=== PATIENT | female | born 1985 | race Caucasian/White ===

== ENCOUNTER 2018-07-01 06:47 | Inpatient (IN) | payer BC ==
[2018-07-01 07:44] VITALS: BMI 27.4
[2018-07-01] MEDS ORDERED: Acetaminophen 500 MG TAB PO PRN (08:00)
[2018-07-01] MEDS ORDERED: Misoprostol 200 MCG TAB PR PRN (08:00)
[2018-07-01] MEDS ORDERED: HYDROcodone/Acetaminophen 5/325 mg Tablet PO PRN ×2 (08:00→20:50)
[2018-07-01] MEDS ORDERED: Methylergonovine 0.2 MG/ML VIAL IM PRN (08:00)
[2018-07-01] MEDS ORDERED: Carboprost 250 MCG/ML AMP IM PRN (08:00)
[2018-07-01] MEDS ORDERED: Promethazine HCl 25 MG/ML VIAL IM PRN ×3 (08:00→20:50)
[2018-07-01] MEDS ORDERED: Ibuprofen 800 MG TAB PO PRN (08:00)
[2018-07-01] MEDS ORDERED: Butorphanol Tartrate 1 MG/ML VIAL SLOW IVP PRN (08:00)
[2018-07-01] MEDS ORDERED: NS / Oxytocin 40 units/1000ml 1,000 ML IV PRN (08:00)
[2018-07-01] MEDS ORDERED: Ondansetron PF 4 MG/2 ML Vial IVP PRN ×3 (08:00→20:50)
[2018-07-01] MEDS ORDERED: NS w/ Oxytocin 10 units 500 ML IV SCH (08:00)
[2018-07-01] MEDS ORDERED: Diphenoxylate HCl/Atropine Tablet PO PRN (08:00)
[2018-07-01] MEDS ORDERED: Lidocaine 1% (PF) 30 ML VIAL SC PRN (08:00)
--- NOTE | 2018-07-01 08:00 | PDOC.LDHP ---
Labor and Delivery H&P Chief complaint: scheduled induction HPI: 32yo at 39w4d by LMP for elective IOL. No complaints Current gestational age (weeks): 39 Due date: 07/05/18 Dating criteria: last menstrual period Grav: 2 Para: 1 Current complications: none Abnormal US findings: No Past Medical History: denies Current medications: pre-marcelina vitamins, other (folic acid) Previous surgical history: none Allergies/Adverse Reactions: Allergies Allergy/AdvReac Type Severity Reaction Status Date / Time No Known Allergies Allergy Verified 07/01/18 07:57 Social history: none - Physical Exam Vital signs reviewed and normal: yes General: NAD Heart: RRR Lungs: CTAB Abdomen: gravid Extremeties: no edema FHT: category 1 [place] contractions every: 10min - Vaginal Exam cm dilated: 3 Effacement: 50% Station: -2 (arom clear scant) - OB Labs Blood type: B RH: positive Antibody Screen: negative HIV: negative RPR: negative HEPSAg: negative 1 hour GCT: negative GBS: negative Urine drug screen: negative Rubella: immune - Assessment L&D Assessment: elective induction at term - Plan Plan: admit to L&D, labor augmentation if indicated, informed consent obtained, anesthesia consult for pain management
[2018-07-01 08:10] LABS: Mean Corpuscular HGB CONC 34.8 g/dL (32.0-36.0); Mean Corpuscular Hemoglobin 31.3 pg (27.0-31.0); Mean Corpuscular Volume 90.1 fL (78.0-98.0); Mean Platelet Volume 7.7 fL (7.4-10.4); Platelet Count 173 thou/uL (130-400); RBC Distribution Width 12.4 % (11.5-14.5); Red Blood Cell (RBC) Count 3.83 mill/uL (4.20-5.40)
[2018-07-01] MEDS: Lactated Ringer's 1,000 ML IV SCH ×2 (08:44→09:00)
[2018-07-01 08:54] LABS: HBSAg Index 0.26 S/CO (0-0.99); Hep B Surf Ag Non-Reactive S/CO (NonReactive)
[2018-07-01 08:55] LABS: Syphilis Antibody Nonreactive (Nonreactive); Syphilis Antibody Index 0.02 S/CO (<1.00 Non-Reactive)
[2018-07-01] MEDS ORDERED: Fentanyl 4 mcg/Bup 0.1% Cadd 0 ML ONE (09:27)
[2018-07-01] MEDS ORDERED: Fentanyl 4 mcg/Bup 0.1% Cadd 100 ML ONE (09:29)
[2018-07-01] MEDS ORDERED: Lidocaine 1.5%/Epinephrine 1:200,000 5 ML AMPUL IJ ONE (09:38)
[2018-07-01] MEDS ORDERED: diphenhydrAMINE 50 MG/ML VIAL IVP PRN (10:27)
[2018-07-01] MEDS ORDERED: ePHEDrine/0.9% NaCl/PF SYRINGE 50 mg/10 ml SLOW IVP PRN (10:27)
[2018-07-01] MEDS ORDERED: Naloxone HCl 0.4 mg/ml Vial IVP PRN ×2 (10:27)
[2018-07-01] MEDS ORDERED: Acetaminophen 325 MG TAB PO PRN (10:27)
[2018-07-01] MEDS ORDERED: Eucerin (Mineral Oil/Petrolatum,White) 30 gm Jar TOP PRN (10:27)
[2018-07-01] MEDS ORDERED: Lactated Ringer's 500 ML IV PRN (10:27)
[2018-07-01] MEDS ORDERED: Communication Order-Pharmacy FS SCH (10:30)
[2018-07-01] MEDS ORDERED: Fentanyl 4 mcg/Bupivacaine 0.1% Cassette 100 ML EPIDURAL SCH (10:30)
[2018-07-01] MEDS ORDERED: Bupivacaine/Epinephrine 0.25% 30 ML VIAL ONE (11:11)
--- NOTE | 2018-07-01 13:15 | PDOC.LDPN ---
Labor & Delivery Progress Note - Subjective Subjective: comfortable - Objective Vital signs reviewed and normal: yes General: NAD Uterine fundus: non tender Dilation: 5 Effacement: 90% Station: -1 FHT: category 1 [place] contractions every: 2-32min Plan: continue plan of care, labor augmentation
[2018-07-01] MEDS ORDERED: Methylergonovine 0.2 MG/ML VIAL ONE (17:27)
--- NOTE | 2018-07-01 17:45 | PDOC.OPDEL ---
OB Operative/Delivery Note Delivery Dr/Surgeon: Castro Assist: n/a Pre-Delivery Diagnosis: elective induction Procedure/Post Delivery Dx: spontaneous vaginal delivery Weeks gestation: 39 Anesthesia: epidural - Findings A Sex: male - 1 min: 8 - 5 min: 9 - Additional Findings/Plan Placenta delivered: spontaneous Repaired Obstetrical Laceration: 2nd degree (repaired with 2-0 vicryl in usual fashion, excellent hemostasis) Estimated blood loss: 400 Post delivery plan: routine recovery
[2018-07-01] MEDS ORDERED: Preparation H Ointment 28 GM TUBE PR PRN (20:50)
[2018-07-01] MEDS ORDERED: Benzocaine/Menthol 20-0.5% 60 ML CAN TOP PRN (20:50)
[2018-07-01] MEDS ORDERED: NS / Oxytocin 40 units/1000ml 1,000 ML IV SCH (20:50)
[2018-07-01] MEDS ORDERED: Lanolin Ointment 7 GM TUBE TOP PRN (20:50)
[2018-07-01] MEDS ORDERED: diphenhydrAMINE 25 MG CAP PO PRN (20:50)
[2018-07-01] MEDS ORDERED: Bisacodyl 10 MG SUPP PR PRN (20:50)
[2018-07-01] MEDS ORDERED: Adacel (T-DAP) 0.5 ML SYRINGE IM ONE (20:50)
[2018-07-01] MEDS ORDERED: Milk Of Magnesia 30 ML UDCUP PO PRN (20:50)
[2018-07-01] MEDS: HYDROcodone/Acetaminophen 5/325 mg Tablet PO PRN (21:28)
[2018-07-01] MEDS: Docusate Calcium (SURFAK) 240 MG CAP PO SCH (21:28)
[2018-07-01] MEDS: Ibuprofen 800 MG TAB PO SCH (21:37)
[2018-07-02] MEDS: Ibuprofen 800 MG TAB PO SCH ×2 (03:35→11:38)
[2018-07-02] MEDS: HYDROcodone/Acetaminophen 5/325 mg Tablet PO PRN ×4 (03:38→18:26)
--- NOTE | 2018-07-02 07:47 | PDOC.PP ---
Post Progress Note Post Day #: 1 PO intake tolerated: yes Flatus: yes Ambulation: yes Vital Signs (12 hours) Temp Pulse Resp BP 07/02/18 03:42 98.1 F 68 18 113/70 07/02/18 00:05 98.0 F 75 18 107/55 L 07/01/18 22:30 98.9 F 73 18 99/52 L 07/01/18 21:30 98.9 F 81 18 108/62 07/01/18 20:30 98.7 F 87 18 119/59 L Weight Weight 170 lb - Physical Examination General: NAD Respiratory: non-labored breathing Abdominal: no distention, appropriately TTP Fundus firm & at: umb Extremities: negative homans (B) Skin: no rash Neurological: no gross focal deficits Psychiatric: normal affect Result Diagrams: 07/01/18 07:46 Additional Labs: Post Labs Blood Type B POSITIVE 07/01/18 08:36 Hep Bs Antigen Non-Reactive S/CO (NonReactive) 07/01/18 07:46 - Assessment/Plan PPD1 s/p TSVD VSSAF Doing well, lochia < menses Rh pos RImm Poss DC later today, FU 6wk
[2018-07-02] MEDS ORDERED: Prenatal Vitamin 1 TAB PO SCH (09:00)
[2018-07-02] MEDS: Docusate Calcium (SURFAK) 240 MG CAP PO SCH (09:12)
[2018-07-02] MEDS: Ferrous Sulfate 325 MG TAB PO SCH ×2 (09:13→17:36)
[2018-07-02 12:18] VITALS: BP 126/79; TEMP 97.6
== END 2018-07-02 18:50 | disposition home or self-care (01) | DRG 807 ==
LOC: L&D 06:47 → 3SW 20:34 → EDSTATUS 07-03 13:24
PROVIDERS: ADMIT Student in an Organized Health Care Education/Training Program; ATTEND Student in an Organized Health Care Education/Training Program
PROC: 10E0XZZ Delivery of Products of Conception, External Approach (ICD-10-PCS; principal; 2018-07-01)
PROC: 0KQM0ZZ Repair Perineum Muscle, Open Approach (ICD-10-PCS; 2018-07-01)
DX: O70.1 Second degree perineal laceration during delivery (principal); Z37.0 Single live birth; Z3A.39 39 weeks gestation of pregnancy
CPT/HCPCS: 36415; 51702; 85027; 86780; 86850; 86900; 86901; 87340; J2210; J3490